=== PATIENT | male | born 1970 | race African-American/Black ===

== ENCOUNTER 2017-02-13 20:49 | Emergency (ER) | payer SELFPAY ==
[~2017-02-13] VITALS: Ht 177.8 cm; Wt 96.0 kg
[2017-02-14 05:02] VITALS: BP 138/75
== END 2017-02-14 05:59 | disposition home or self-care (01) ==
LOC: ER 20:49
DX: M54.12 Radiculopathy, cervical region (principal); R53.1 Weakness; F12.10 Cannabis abuse, uncomplicated
CPT/HCPCS: 72125; 99284; Z7610